=== PATIENT | female | born 1970 | race Caucasian/White ===

== ENCOUNTER → 2019-01-07 15:22 | Outpatient (CLI) | payer OTHER, SELFPAY | DX: Z23 Encounter for immunization (principal) | CPT/HCPCS: 90471; 90686 ==

== ENCOUNTER → 2019-08-21 16:19 | Outpatient (CLI) | payer OTHER, SELFPAY ==
[2019-08-28 06:36] LABS: COVID19 Sendout Not Detected (Not Detected)
== END ==
PROVIDERS: Visit Provider Physician Assistant
DX: J02.9 Acute pharyngitis, unspecified (principal)
CPT/HCPCS: 87070; 87635

== ENCOUNTER → 2020-03-28 14:35 | Outpatient (CLI) | payer OTHER, SELFPAY ==
[2020-03-28 15:17] LABS: COVID19 -Nasal RAPID Negative (Negative)
== END ==
PROVIDERS: Visit Provider Physician Assistant
DX: Z20.828 Contact with and (suspected) exposure to other viral communicable diseases (principal); J02.9 Acute pharyngitis, unspecified
CPT/HCPCS: 87635

== ENCOUNTER → 2020-06-25 16:01 | Outpatient (CLI) | payer OTHER, SELFPAY ==
--- NOTE | 2020-06-25 16:05 | DI.MG.S_ITS ---
BILATERAL DIGITAL SCREENING MAMMOGRAM 3D/2D WITH CAD: 06/25/2020 CLINICAL: Routine screening. Baseline exam. No prior exams were available for comparison. There are scattered fibroglandular elements in both breasts. Current study was also evaluated with a Computer Aided Detection (CAD) system. There are new grouped fine calcifications in the right breast at 11 o'clock middle depth. No other significant masses, calcifications, or other findings are seen in either breast. IMPRESSION: INCOMPLETE: NEEDS ADDITIONAL IMAGING EVALUATION The new grouped fine calcifications in the right breast are indeterminate. Mediolateral and spot magnification views are recommended. This exam was interpreted at Station ID: [id number]. NOTE: For mammograms, a report in lay terms will be sent to the patient. Approximately 15% of breast malignancies will not be visualized mammographically. In the management of a palpable breast mass, a negative mammogram must not discourage biopsy of a clinically suspicious lesion. Electronically Signed By: Zi Dai acr/:06/25/2020 17:14:27 letter sent: Additional Imaging Needed ACR BI-RADS Category 0: Incomplete 3340F
== END ==
PROVIDERS: PCP Family Medicine; Referring Provider Family Medicine; Visit Provider Family Medicine
DX: Z12.31 Encounter for screening mammogram for malignant neoplasm of breast (principal)
CPT/HCPCS: 77063; 77067

== ENCOUNTER → 2020-07-08 12:38 | Outpatient (CLI) | payer OTHER, SELFPAY ==
--- NOTE | 2020-07-08 12:41 | DI.MG.S_ITS ---
UNILATERAL RIGHT DIGITAL DIAGNOSTIC MAMMOGRAM 3D/2D WITH ADDITIONAL VIEWS: 07/08/2020 CLINICAL: Additional evaluation requested from prior study. Comparison is made to exam dated: 06/25/2020 [facility]. The tissue of right breast is heterogeneously dense. This may lower the sensitivity of mammography. There are grouped fine calcifications in the right breast at 11 o'clock middle depth. No other significant masses or calcifications are seen in the breast. IMPRESSION: PROBABLY BENIGN The grouped fine calcifications in the right breast are probably benign. A follow-up mammogram in 6 months is recommended. A follow-up mammogram in 6 months is recommended to demonstrate stability. This exam was interpreted at Station ID: [id number]. NOTE: For mammograms, a report in lay terms will be sent to the patient. Approximately 15% of breast malignancies will not be visualized mammographically. In the management of a palpable breast mass, a negative mammogram must not discourage biopsy of a clinically suspicious lesion. Electronically Signed By: Bakari fernandez/:07/08/2020 13:09:23 letter sent: Followup Recommended ACR BI-RADS Category 3: Probably benign 3343F
== END ==
PROVIDERS: PCP Family Medicine; Referring Provider Family Medicine; Visit Provider Family Medicine
DX: R92.1 Mammographic calcification found on diagnostic imaging of breast
CPT/HCPCS: 77065; G0279

== ENCOUNTER → 2020-08-05 15:47 | Outpatient (CLI) | payer OTHER, SELFPAY ==
[2020-08-05 16:11] LABS: COVID19 -Nasal RAPID Negative (Negative)
== END ==
PROVIDERS: PCP Family Medicine; Visit Provider Surgery
DX: Z20.822 Contact with and (suspected) exposure to COVID-19 (principal)
CPT/HCPCS: 87635; C9803

== ENCOUNTER 2020-08-06 08:02 | Day surgery (SDC) | payer OTHER, SELFPAY ==
[2020-08-06 08:14] VITALS: BMI 24.3
[2020-08-06 08:21] VITALS: BP 109/75; PULSE 64; RESP 13; TEMP 36.6; O2SAT 98
[2020-08-06] MEDS: SODIUM CHLORIDE 0.9% 1,000 ML 200 ML IV (08:25)
--- NOTE | 2020-08-06 08:57 | PM.HP.1 ---
History of Present Illness History of Present Illness Date Patient Seen: 08/06/20 Time Patient Seen: 08:57 Chief complaint: SCREENING COLONOSCOPY Narrative: This is a 50-year-old woman who is here for for screening colonoscopy. She had a colonoscopy many years ago when she was going through an evaluation for endometriosis. She reports that that 1 was normal. She denies any symptoms such as melena, hematochezia, unexplained abdominal pain, unexplained weight loss. She denies any family history of colon cancer colon polyps. She says she is otherwise in good health. ROS: Thirteen system review is otherwise negative other than as mentioned below and in HPI. PE: GENERAL: Well groomed and cooperative. Appears stated age. Answers questions promptly and appropriately. Vital signs noted. HENT: Normocephalic, atraumatic. Hearing intact. EYES: Conjunctiva pink, sclera white, no periorbital swelling. CARDIOVASCULAR: Regular rate. No pedal edema. RESPIRATORY: Non-tachypneic, breathing comfortably on room air. GASTROINTESTINAL: Abdomen soft and non-distended GENITALURINARY: No flank tenderness. MUSCULOSKELETAL: Equal tone and mass bilaterally. SKIN: Warm, dry, soft, appropriate color for ethnicity. No other lesions, rashes, or wounds. NEURO: Alert and Oriented X 3. No gross sensory deficits, or cognitive issues. PSYCH: Appropriate affect and mood. Patient History Medical History Breast calcification, right Circadian rhythm sleep disorder, shift work type (~2010) Colon cancer screening Encounter for general adult medical examination with abnormal findings Insomnia, persistent (~2010) Surgical History Status post delivery Status post delivery Status post hysterectomy with oophorectomy Status post laparoscopy Family & Social History Family History Sister Age: 49 Schizophrenia Social History: household members spouse lives independently Yes caregiver/support person No Tobacco & Substance use: Smoking Status Never smoker alcohol intake never Substance Use Type does not use Meds Home Medications and Allergies Home Medications Medication Instructions Recorded Confirmed Type CHOLECALCIFEROL (VITAMIN D) 2,000 units PO QDAY #0 09/27/12 08/06/20 History ibuprofen 600 mg PO Q6HP #0 09/27/12 08/06/20 History temazepam 15 mg capsule 15 mg PO BEDTIME PRN #30 cap 04/21/20 08/06/20 Rx Allergies Allergy/AdvReac Type Severity Reaction Status Date / Time No Known Allergies Allergy Uncoded 06/11/20 14:55 Exam Vital Signs (past 8 hours): - 08/06/20 08:21 Temperature 97.9 F Pulse Rate 64 Respiratory Rate 13 Blood Pressure 109/75 Pulse Oximetry 98 Oxygen Delivery Method Room Air Assessment & Plan Assessment and plan (1) At average risk for colon cancer: Status: Acute Assessment & Plan narrative: Risks and benefits of screening colonoscopy and possible polypectomy were discussed with the patient including risk of bleeding, perforation, need for additional procedures, risks of anesthesia. The patient desires to proceed with the colonoscopy procedure. COVID-19 COVID-19 status: Negative Result date/Date tested (Pos, Neg/Pending): 08/05/20 Time Spent With Patient Time with patient: 15-24 minutes Quality VTE Deep Vein Thrombosis/Pulmonary Embolism Present on Admission: No
--- NOTE | 2020-08-06 08:58 | PM.OP.ENDO ---
Operative Date/Time/Diagnoses Date of procedure: 08/06/20 Time of procedure: 08:58 Pre-op diagnosis: Average risk for colon cancer, due for screening colonoscopy Post-op diagnosis: other (Normal colon) Procedure & Clinicians Study performed: Colonoscopy Procedural sedation performed by the endoscopist Same procedure as scheduled: Yes Indications: Average risk for colon cancer, due for screening colonoscopy Surgeon: Alexandrea Combs Procedure Notes SCOAP/Timeout: Performed Procedure in detail: The patient was brought to the room and placed in left lateral decubitus position with all bony prominences padded. A time-out was performed and then the patient was given procedural sedation with a total of 6 mg of Versed and 150 mcg of fentanyl for the entire procedure. Vitals were monitored throughout the procedure and remained stable. Once adequately sedated, the procedure was begun. A rectal exam was performed revealing no abnormalities. The colonoscope was then introduced to the rectum and advanced to the cecum in the usual fashion. The cecum was identified by the appendiceal orifice, the mucosal tri-fold, and the ileocecal valve. The scope was then retracted while rotating side to side and examining each mucosal fold. At the conclusion of the procedure retroflexion was performed and small grade 1-2 internal hemorrhoids without stigmata of bleeding were seen. The scope was then withdrawn from the rectum the procedure was concluded. The patient tolerated the procedure well and was transferred to the PACU in stable condition. Scope withdrawal time: 8 Sedation minutes: 21 Specimen(s): none sent Complications: none Impression: Normal colon Post-procedure Recommendations: Colonscopy in 10 years Follow up: as needed Disposition: PACU
[2020-08-06] MEDS: MIDAZOLAM 5 MG/5 ML VIAL IV (09:03)
[2020-08-06] MEDS: fentaNYL 250 MCG/5 ML INJ IV (09:03)
[2020-08-06 09:30] VITALS: BP 111/68; PULSE 54; RESP 12; TEMP 36.3; O2SAT 100
[2020-08-06 09:35] VITALS: BP 116/71; PULSE 50; RESP 14; O2SAT 100
[2020-08-06 09:40] VITALS: BP 114/77; PULSE 49; RESP 16; O2SAT 100
[2020-08-06 09:45] VITALS: BP 114/69; PULSE 48; RESP 18; O2SAT 100
[2020-08-06 10:00] VITALS: BP 119/71; PULSE 57; RESP 14; TEMP 36.3; O2SAT 100
== END 2020-08-06 10:04 | disposition home or self-care (01) ==
PROVIDERS: PCP Family Medicine; Referring Provider Family Medicine; Visit Provider Surgery
PROC: 0DJD8ZZ Inspection of Lower Intestinal Tract, Via Natural or Artificial Opening Endoscopic (ICD-10-PCS; CPT 45378; principal; 2020-08-06 09:15)
DX: Z12.11 Encounter for screening for malignant neoplasm of colon (principal); K64.0 First degree hemorrhoids
CPT/HCPCS: 45378; 99152; J2250; J3010

== ENCOUNTER → 2021-04-06 12:43 | Outpatient (CLI) | payer OTHER, SELFPAY ==
--- NOTE | 2021-04-06 12:45 | DI.MG.S_ITS ---
UNILATERAL RIGHT DIGITAL DIAGNOSTIC MAMMOGRAM 3D/2D: 04/06/2021 CLINICAL: Short term follow up of the right breast. Comparison is made to exams dated: 07/08/2020 mammogram and 06/25/2020 mammogram - [facility]. The tissue of right breast is heterogeneously dense. This may lower the sensitivity of mammography. There are stable grouped fine calcifications in the right breast at 11 o'clock middle depth. No other significant masses or calcifications are seen in the breast. Mammograms are otherwise stable. IMPRESSION: PROBABLY BENIGN The stable grouped fine calcifications in the right breast are probably benign. A follow-up mammogram with magnification views in 6 months is recommended to demonstrate continued stability. The patient will be due for bilateral mammograms at that same visit. Findings and recommendations were conveyed to the patient at time of exam. This exam was interpreted at Station ID: [id number]. NOTE: For mammograms, a report in lay terms will be sent to the patient. Approximately 15% of breast malignancies will not be visualized mammographically. In the management of a palpable breast mass, a negative mammogram must not discourage biopsy of a clinically suspicious lesion. Electronically Signed By: Marissa acosta/:04/06/2021 13:30:02 letter sent: Followup Recommended ACR BI-RADS Category 3: Probably benign 3343F
== END ==
PROVIDERS: PCP Family Medicine; Referring Provider Family Medicine; Visit Provider Family Medicine
DX: R92.1 Mammographic calcification found on diagnostic imaging of breast (principal)
CPT/HCPCS: 77065; G0279

== ENCOUNTER → 2021-05-13 10:27 | Outpatient (CLI) | payer OTHER, SELFPAY ==
[2021-05-13 12:13] LABS: Alanine Aminotransferase 15 IU/L (<35); Albumin 4.8 g/dL (3.5-5.0); Albumin Globulin Ratio 1.7 (1.0-2.8); Alkaline Phosphatase 70 U/L (38-126); Aspartate Aminotransferase 30 IU/L (14-36); BUN Creatinine Ratio 22.2 (6-22); Bilirubin Total 0.9 mg/dL (0.2-1.3); Blood Urea Nitrogen 18 mg/dL (7-17); Calcium 9.9 mg/dL (8.4-10.2); Carbon Dioxide 26 mmol/L (22-32); Chloride 105 mmol/L (98-107); Cholesterol 240 mg/dL (140-199); Estimated Glomerular Filt Rate > 60.0 mL/min (>60); Globulin 2.8 g/dL (1.7-4.1); Glucose 108 mg/dL (70-100); HEMOLYSIS < 15 (0-50); Potassium 4.2 mmol/L (3.4-5.1); Sodium 137 mmol/L (137-145); Total Protein 7.6 g/dL (6.3-8.2); Triglycerides 61 mg/dL (35-150)
[2021-05-13 12:22] LABS: HDL Cholesterol 166 mg/dL (40-60); LDL Cholesterol Calculated 62 mg/dL (<100)
[2021-05-13 12:59] LABS: TSH w/ Reflex to FT4 1.47 uIU/mL (0.47-4.68)
[2021-05-13 13:15] LABS: Influenza A - CEPHEID Flu A NEGATIVE (NEGATIVE); Influenza B - CEPHEID Flu B NEGATIVE (NEGATIVE); Respiratory Syncytial Virus Negative (Negative)
[2021-05-13 13:17] LABS: COVID-19 CEPHEID PCR (VTM/NP) Negative (Negative)
[2021-05-13 16:43] LABS: Follicle Stimulating Hormone 59.5 mIU/mL; Vitamin D 25 Hydroxy (D3) 67.8 ng/mL (30.0-100.0)
== END ==
PROVIDERS: PCP Family Medicine; Referring Provider Family Medicine; Visit Provider Family Medicine
DX: Z20.822 Contact with and (suspected) exposure to COVID-19 (principal); G47.00 Insomnia, unspecified; G47.26 Circadian rhythm sleep disorder, shift work type; Z00.01 Encounter for general adult medical examination with abnormal findings; N95.1 Menopausal and female climacteric states
CPT/HCPCS: 0241U; 36415; 80053; 80061; 82306; 83001; 83036; 84443

== ENCOUNTER → 2022-06-01 11:03 | Outpatient (CLI) | payer OTHER, SELFPAY ==
--- NOTE | 2022-06-01 11:06 | DI.MG.S_ITS ---
BILATERAL DIGITAL DIAGNOSTIC MAMMOGRAM 3D/2D: 06/01/2022 CLINICAL: Short term follow up of the right breast, due for bilateral imaging. Comparison is made to exams dated: 04/06/2021 mammogram, 07/08/2020 mammogram, and 06/25/2020 mammogram - [facility]. Both breasts are heterogeneously dense, which may obscure small masses (category c / 51-75% glandular tissue). There are stable grouped fine punctate calcifications in the right breast at 11 o'clock middle depth. No other significant masses, calcifications, or other findings are seen in either breast. IMPRESSION: BENIGN There is no mammographic evidence of malignancy. Grouped fine and punctate calcifications in the right breast at 11 o'clock middle depth demonstrate long-term stability and are benign. A 1 year screening mammogram is recommended. Based on the Tyrer Cuzick model (a risk assessment model) the patient's lifetime risk is 7.1% and her 10 year risk is 1.8%. According to the ACR, ACS, and NCCN guidelines, an annual breast MRI exam along with mammogram is recommended if the patient's lifetime risk is 20% or greater. This exam was interpreted at Station ID: [id number]. NOTE: For mammograms, a report in lay terms will be sent to the patient. Approximately 15% of breast malignancies will not be visualized mammographically. In the management of a palpable breast mass, a negative mammogram must not discourage biopsy of a clinically suspicious lesion. Electronically Signed By: Jimmy Paulino M.D. [facility]/:06/01/2022 12:43:42 letter sent: Normal Exam ACR BI-RADS Category 2: Benign Finding(s) 3342F
[2022-06-01 12:20] LABS: Add Manual Diff / Slide Review NO; Basophils Absolute Auto 100 /uL (0-100); Basophils Percent Auto 0.7 % (0-2); Eosinophils Absolute Auto 100 /uL (0-450); Eosinophils Percent Auto 0.9 % (2-4); Hematocrit 39.5 % (36-46); Hemoglobin 13.5 g/dL (12.0-16.0); Lymphocytes Absolute Auto 1700 /uL (1100-4500); Mean Corpuscular HGB Conc 34.2 % (30-36); Mean Corpuscular Hemoglobin 31.8 PG (26-34); Mean Corpuscular Volume 92.9 fL (80-100); Monocytes Absolute Auto 400 /uL (0-900); Monocytes Percent Auto 5.7 % (3-14); Neutrophils Absolute Auto 5000 /uL (1500-7000); Neutrophils Percent Auto 69.7 % (50-75); Platelet Count 280 X10^3/uL (150-400); Red Blood Cell Count 4.26 X10^6/uL (4.0-5.2); Red Cell Distribution Width 12.9 % (11.6-14.8); White Blood Cell Count 7.2 X10^3/uL (4.5-11.0)
[2022-06-01 13:04] LABS: Alanine Aminotransferase 17 IU/L (<35); Albumin 4.6 g/dL (3.5-5.0); Albumin Globulin Ratio 1.6 (1.0-2.8); Alkaline Phosphatase 103 U/L (38-126); Aspartate Aminotransferase 25 IU/L (14-36); BUN Creatinine Ratio 33.3 (6-22); Bilirubin Total 1.3 mg/dL (0.2-1.3); Blood Urea Nitrogen 24 mg/dL (7-17); Calcium 9.4 mg/dL (8.4-10.2); Carbon Dioxide 21 mmol/L (22-32); Chloride 105 mmol/L (98-107); Estimated Glomerular Filt Rate > 60 mL/min (>60); Globulin 2.8 g/dL (1.7-4.1); Glucose 96 mg/dL (70-100); HEMOLYSIS < 15 (0-50); Sodium 138 mmol/L (137-145); Total Protein 7.4 g/dL (6.3-8.2)
[2022-06-01 13:32] LABS: TSH w/ Reflex to FT4 2.33 uIU/mL (0.47-4.68)
== END ==
PROVIDERS: PCP Family Medicine; Referring Provider Family Medicine; Visit Provider Family Medicine
DX: R92.1 Mammographic calcification found on diagnostic imaging of breast (principal); E78.89 Other lipoprotein metabolism disorders; F90.0 Attention-deficit hyperactivity disorder, predominantly inattentive type; G47.00 Insomnia, unspecified
CPT/HCPCS: 36415; 77066; 80053; 84443; 85025; G0279

== ENCOUNTER → 2022-07-06 09:11 | Outpatient (CLI) | payer OTHER, SELFPAY ==
[2022-07-06 10:31] LABS: Cholesterol 241 mg/dL (140-199); Triglycerides 54 mg/dL (35-150)
[2022-07-06 10:38] LABS: HDL Cholesterol 159 mg/dL (40-60); LDL Cholesterol Calculated 71 mg/dL (<100)
== END ==
PROVIDERS: PCP Family Medicine; Referring Provider Family Medicine; Visit Provider Family Medicine
DX: E78.89 Other lipoprotein metabolism disorders (principal); F90.0 Attention-deficit hyperactivity disorder, predominantly inattentive type; G47.00 Insomnia, unspecified
CPT/HCPCS: 36415; 80061

== ENCOUNTER 2022-11-21 12:16 | Emergency (ER) | payer OTHER, SELFPAY ==
[2022-11-21 12:35] VITALS: BP 153/75; PULSE 79; RESP 16; TEMP 36.9; O2SAT 99; BMI 22.8
[2022-11-21] MEDS: ACETAMINOPHEN 325 MG TABLET 975 MG PO (13:13)
[2022-11-21] MEDS: ONDANSETRON 4 MG ODT SL (13:13)
[2022-11-21] MEDS: KETOROLAC 30 MG/ML VIAL IM (13:14)
--- NOTE | 2022-11-21 13:39 | ED.HEATRA ---
HPI - Head Injury <Priya Alexandra PA-C - Last Filed: 11/21/22 14:05> General Chief complaint: Head Injury Stated complaint: Head inj Time Seen by Provider: 11/21/22 12:54 Source: patient Mode of arrival: Ambulatory History of Present Illness HPI Narrative: 52-year-old female with past medical history ADHD, insomnia presents to the ED status post a head injury sustained 6 days prior to arrival. Patient states that she was accidentally hit on the head with a log from the water when her kids were playing. Patient denies loss of consciousness. Patient states that since then she is had a headache and feels a small bump on her head with a log hit her. Patient also endorses nausea, denies vomiting. Denies vision changes. Patient states that she does not taken anything for the pain. Patient states she spoke with her PCP who sent her to the walk-in clinic, walk-in clinic sent her to the ED for further evaluation. Related Data Home Medications Medication Instructions Recorded Confirmed CHOLECALCIFEROL (VITAMIN D) 2,000 units PO QDAY ##0 09/27/12 09/13/22 ibuprofen 600 mg tablet 600 mg PO Q6HP ##0 09/27/12 09/13/22 Previous Rx's Medication Instructions Recorded temazepam 15 mg capsule 15 mg PO BEDTIME PRN sleep 04/26/22 initiation and maintenence #30 caps dextroamphetamine-amphetamine 10 10 mg PO DAILY #30 tabs 11/15/22 mg tablet (Adderall) Allergies Allergy/AdvReac Type Severity Reaction Status Date / Time No Known Drug Allergies Allergy Verified 11/21/22 12:44 Review of Systems <Priya Alexandra PA-C - Last Filed: 11/21/22 14:05> Review of Systems ROS Unobtainable: All systems reviewed & are unremarkable except as noted in HPI and below Constitutional Constitutional: Denies chills, Denies fatigue, Denies fever(s), Denies frequent falls, Reports headache(s), Denies lethargy and Denies weakness Eyes Eyes: Denies change in vision, Denies eye discharge, Denies irritation and Denies loss of vision ENT Ears, Nose, Mouth, and Throat: Denies change in voice, Denies dizziness, Reports headache(s), Denies neck pain, Denies sore throat and Denies throat swelling Cardiovascular Cardiovascular: Denies chest pain, Denies irregular heart rhythm, Denies lightheadedness, Denies palpitations, Denies dyspnea, Denies dyspnea on exertion and Denies orthopnea Respiratory Respiratory: Denies cough, Denies dyspnea, Denies dyspnea on exertion and Denies wheezing Gastrointestinal Gastrointestinal: Denies abdominal pain, Denies change in bowel habits, Denies diarrhea, Reports nausea and Denies vomiting Genitourinary Genitourinary: Denies hematuria, Denies flank pain, Denies urinary incontinence and Denies urinary urgency Musculoskeletal Musculoskeletal: Denies back pain, Denies muscle weakness, Denies neck pain, Denies numbness and Denies tingling Integumentary/Breasts Skin/Breast: Denies pruritus, Denies erythema, Denies rash and Denies wounds Neurologic Neurologic: Denies behavioral changes, Denies confusion, Denies dizziness, Denies frequent falls, Reports headache(s), Denies loss of vision, Denies numbness, Denies tingling and Denies weakness Psychiatric Psychiatric: Denies anxiety, Denies behavioral changes, Denies confusion, Denies depression, Denies homicidal ideation and Denies suicidal ideation Endocrine Endocrine: Denies fatigue, Denies flushing and Denies palpitations Hematologic/Lymphatic Hematologic/Lymphatic: Denies easy bruising Allergic/Immunologic Allergic/Immunologic: Denies urticaria, Denies throat swelling and Denies wheezing Patient History <Priya Alexandra PA-C - Last Filed: 11/21/22 14:05> Medical History ADHD Breast calcification, right Circadian rhythm sleep disorder, shift work type (~2010) Colon cancer screening Encounter for general adult medical examination with abnormal findings Insomnia, persistent (~2010) Perimenopause Surgical History Status post delivery Status post delivery Status post hysterectomy with oophorectomy Status post laparoscopy Family History Sister Age: 51 Schizophrenia Social History marital status: details: to Youssarian household members: spouse lives independently: Yes caregiver/support person: No housing: house education level: college occupational status: employed current occupational exposures/hazards: Yes (hospital-based RN w/usual exposures ) Smoking Status: Never smoker alcohol intake: never Smoking Status: Never smoker Substance Use Type: does not use Exam <Priya Alexandra PA-C - Last Filed: 11/21/22 14:05> Narrative Exam Narrative: Const General:?cooperative, healthy appearing and comfortable HENMT Head:?normal to inspection; there is a small bump on the left parietal region. No skull depressions, no hematoma. Ears:?hearing grossly normal bilaterally Nose:?external nose normal Face and sinus:?normal facial exam and sinuses nontender Mouth:?oral mucosae normal Throat:?posterior oropharynx normal Eyes General:?appearance normal, both eyes and all related structures Neck Neck:?normal visual inspection and no lymphadenopathy noted Resp Effort & Inspection:?normal respiratory effort Auscultation:?clear to auscultation bilaterally Cardio Rate:?regular rate Rhythm:?regular rhythm Neuro General:?patient alert, patient awake and patient oriented x3 Initial Vital Signs Initial Vital Signs: Vital Signs Temperature 98.4 F 11/21/22 12:35 Pulse Rate 79 11/21/22 12:35 Respiratory Rate 16 11/21/22 12:35 Blood Pressure 153/75 H 11/21/22 12:35 Pulse Oximetry 99 11/21/22 12:35 Oxygen Delivery Method Room Air 11/21/22 12:35 <Sara Mcgowan DO - Last Filed: 11/22/22 08:16> Initial Vital Signs Initial Vital Signs: Vital Signs Temperature 98.4 F 11/21/22 12:35 Pulse Rate 79 11/21/22 12:35 Respiratory Rate 16 11/21/22 12:35 Blood Pressure 153/75 H 11/21/22 12:35 Pulse Oximetry 99 11/21/22 12:35 Oxygen Delivery Method Room Air 11/21/22 12:35 Course <Priya Alexandra PA-C - Last Filed: 11/21/22 14:05> Orders Ordered: Discontinued Medications Acetaminophen (Acetaminophen 325 Mg Tablet) 975 mg PO NOW ONE Stop: 11/21/22 13:00 Last Admin: 11/21/22 13:13 Dose: 975 mg Documented By: TORI Ketorolac Tromethamine (Ketorolac 30 Mg/Ml Vial) 30 mg IM NOW ONE Stop: 11/21/22 13:03 Last Admin: 11/21/22 13:14 Dose: 30 mg Documented By: TORI Ondansetron HCl (Ondansetron 4 Mg Odt) 4 mg SL NOW ONE Stop: 11/21/22 13:03 Last Admin: 11/21/22 13:13 Dose: 4 mg Documented By: TORI Vital Signs Vital signs: Vital Signs - 8 hr 11/21/22 12:35 Temperature 98.4 F Pulse Rate 79 Respiratory Rate 16 Blood Pressure 153/75 H Pulse Oximetry 99 Oxygen Delivery Method Room Air <Sara Mcgowan DO - Last Filed: 11/22/22 08:16> Orders Ordered: Discontinued Medications Acetaminophen (Acetaminophen 325 Mg Tablet) 975 mg PO NOW ONE Stop: 11/21/22 13:00 Last Admin: 11/21/22 13:13 Dose: 975 mg Documented By: TORI Ketorolac Tromethamine (Ketorolac 30 Mg/Ml Vial) 30 mg IM NOW ONE Stop: 11/21/22 13:03 Last Admin: 11/21/22 13:14 Dose: 30 mg Documented By: TORI Ondansetron HCl (Ondansetron 4 Mg Odt) 4 mg SL NOW ONE Stop: 11/21/22 13:03 Last Admin: 11/21/22 13:13 Dose: 4 mg Documented By: TORI Vital Signs Vital signs: Vital Signs - 8 hr 11/21/22 12:35 Temperature 98.4 F Pulse Rate 79 Respiratory Rate 16 Blood Pressure 153/75 H Pulse Oximetry 99 Oxygen Delivery Method Room Air MDM - Head Injury <Priya Alexandra PA-C - Last Filed: 11/21/22 14:05> MDM Narrative Medical decision making narrative: 52-year-old female with past medical history ADHD, insomnia presents to the ED status post a head injury sustained 6 days prior to arrival. Physical exam is reassuring, no skull depressions or hematoma noted. Patient's symptoms are most consistent with a concussion. Given that the injury was 6 days ago, unlikely intracranial hemorrhage, no imaging indicated at this time. Will treat with Tylenol, ketorolac, Zofran. Will reassess. Patient's symptoms resolved with medications. Discussed common signs and symptoms of a concussion. Recommend follow-up with the PCP. ED return precautions discussed with patient. Patient verbalized understanding. Medical records reviewed: Yes Discharge Plan Departure Patient Disposition: Home Clinical Impression: Closed head injury Instructions: Concussion, DI for Closed Head Injury Activity Restrictions/Additional Instructions: You were evaluated in the ED today for a head injury. Your symptoms of headache and nausea are most consistent with a concussion, which is a minor brain injury. You may also experience symptoms including sleepiness, fatigue, depression, agitation, vomiting in addition to nausea, headache. You may take Tylenol, ibuprofen for your symptoms. Please stay well hydrated. Please follow-up with your PCP for further evaluation and monitoring of postconcussive syndrome. Please return to the ED if you have worsening symptoms, persistent vomiting. Prescriptions: No Action ibuprofen 600 MG tablet 600 mg PO Q6HP Qty: 0 CHOLECALCIFEROL (VITAMIN D) 2,000 units PO QDAY Qty: 0 dextroamphetamine-amphetamine [Adderall] 10 mg tablet 10 mg PO DAILY Qty: 30 0RF temazepam 15 mg capsule 15 mg PO BEDTIME PRN (Reason: sleep initiation and maintenence) Qty: 30 3RF Referrals: David Gray MD [Primary Care Provider] - Stand Alone Forms: Patient Portal/API, Work Release Note <Sara Mcgowan DO - Last Filed: 11/22/22 08:16> Cosign ED Attending Cosignature Attestation: I was immediately available in the department for consultation. Documentation has been reviewed.
[2022-11-21 14:13] VITALS: BP 132/72; PULSE 60; RESP 16; O2SAT 99
== END 2022-11-21 14:15 | disposition home or self-care (01) ==
PROVIDERS: Emergency Provider Student in an Organized Health Care Education/Training Program; PCP Family Medicine
DX: S09.90XA Unspecified injury of head, initial encounter (principal); W22.8XXA Striking against or struck by other objects, initial encounter
CPT/HCPCS: 96372; 99283; J1885

== ENCOUNTER → 2023-06-08 12:47 | Outpatient (CLI) | payer OTHER, SELFPAY ==
--- NOTE | 2023-06-08 12:49 | DI.MG.S_ITS ---
BILATERAL DIGITAL SCREENING MAMMOGRAM 3D/2D WITH CAD: 06/08/2023 CLINICAL: Routine screening. Comparison is made to exams dated: 06/01/2022 mammogram and 06/25/2020 mammogram - [facility]. Both breasts are heterogeneously dense, which may obscure small masses (category c / 51-75% glandular tissue). Current study was also evaluated with a Computer Aided Detection (CAD) system. No significant masses, calcifications, or other findings are seen in either breast. There has been no significant interval change. IMPRESSION: NEGATIVE There is no mammographic evidence of malignancy. A 1 year screening mammogram is recommended. Based on the Tyrer Cuzick model (a risk assessment model) the patient's lifetime risk is 7.0% and her 10 year risk is 1.9%. According to the ACR, ACS, and NCCN guidelines, an annual breast MRI exam along with mammogram is recommended if the patient's lifetime risk is 20% or greater. This exam was interpreted at Station ID: [id number]. NOTE: For mammograms, a report in lay terms will be sent to the patient. Approximately 15% of breast malignancies will not be visualized mammographically. In the management of a palpable breast mass, a negative mammogram must not discourage biopsy of a clinically suspicious lesion. Electronically Signed By: Reyes vides/angie:06/08/2023 16:37:29 letter sent: Normal Exam ACR BI-RADS Category 1: Negative 3341F
== END ==
PROVIDERS: PCP Family Medicine; Referring Provider Family Medicine; Visit Provider Family Medicine
DX: Z12.31 Encounter for screening mammogram for malignant neoplasm of breast (principal); R92.333 Mammographic heterogeneous density, bilateral breasts
CPT/HCPCS: 77063; 77067

== ENCOUNTER → 2024-07-15 09:42 | Outpatient (CLI) | payer OTHER, SELFPAY ==
[2024-07-15 10:45] LABS: Add Manual Diff / Slide Review NO; Basophils Absolute Auto 100 /uL (0-100); Basophils Percent Auto 1.1 % (0-2); Eosinophils Absolute Auto 100 /uL (0-450); Hematocrit 37.3 % (36-46); Hemoglobin 12.7 g/dL (12.0-16.0); Lymphocytes Absolute Auto 1900 /uL (1100-4500); Lymphocytes Percent Auto 36.3 % (25-40); Mean Corpuscular HGB Conc 34.1 % (30-36); Mean Corpuscular Hemoglobin 31.7 PG (26-34); Mean Corpuscular Volume 92.8 fL (80-100); Monocytes Absolute Auto 400 /uL (0-900); Monocytes Percent Auto 7.9 % (3-14); Neutrophils Absolute Auto 2800 /uL (1500-7000); Neutrophils Percent Auto 52.7 % (50-75); Platelet Count 316 X10^3/uL (150-400); Red Blood Cell Count 4.02 X10^6/uL (4.0-5.2); Red Cell Distribution Width 12.8 % (11.6-14.8); White Blood Cell Count 5.3 X10^3/uL (4.5-11.0)
[2024-07-15 11:46] LABS: Alanine Aminotransferase 16 IU/L (<35); Albumin 4.8 g/dL (3.5-5.0); Albumin Globulin Ratio 1.9 (1.0-2.8); Alkaline Phosphatase 66 U/L (38-126); Aspartate Aminotransferase 27 IU/L (14-36); BUN Creatinine Ratio 28.2 (6-22); Bilirubin Total 1.3 mg/dL (0.2-1.3); Blood Urea Nitrogen 24 mg/dL (7-17); Calcium 9.8 mg/dL (8.4-10.2); Carbon Dioxide 22 mmol/L (22-32); Chloride 105 mmol/L (98-107); Cholesterol 264 mg/dL (140-199); Estimated Glomerular Filt Rate > 60 mL/min (>60); Globulin 2.5 g/dL (1.7-4.1); Glucose 82 mg/dL (70-100); HEMOLYSIS < 15 (0-50); Sodium 137 mmol/L (137-145); Total Protein 7.3 g/dL (6.3-8.2); Triglycerides 59 mg/dL (35-150)
[2024-07-15 11:54] LABS: HDL Cholesterol 125 mg/dL (40-60); LDL Cholesterol Calculated 127 mg/dL (<100)
[2024-07-15 12:17] LABS: TSH w/ Reflex to FT4 3.14 uIU/mL (0.47-4.68)
== END ==
PROVIDERS: PCP Family Medicine; Referring Provider Family Medicine; Visit Provider Family Medicine
DX: F90.9 Attention-deficit hyperactivity disorder, unspecified type (principal); G47.26 Circadian rhythm sleep disorder, shift work type; Z78.0 Asymptomatic menopausal state
CPT/HCPCS: 36415; 80053; 80061; 84443; 85025

== ENCOUNTER 2025-03-13 13:53 | Emergency (ER) | payer OTHER, SELFPAY ==
[2025-03-13] VITALS (8 sets, daily range): BP systolic 119–160; BP diastolic 77–97; PULSE 64–97; RESP 16–18; TEMP 36.3–36.8; O2SAT 96–100; BMI 23.6
--- NOTE | 2025-03-13 14:11 | DI.US.S_ITS ---
PROCEDURE: US RENAL COMPLETE INDICATIONS: R flank pain TECHNIQUE: Real-time scanning was performed of the kidneys and bladder, with image documentation. COMPARISON: None. FINDINGS: Kidneys: Kidneys are normal in size. Right kidney measures 9.4 cm long; left kidney measures 10.1 cm long. Right renal cortical thickness is 1.0 cm; left renal cortical thickness is 1.4 cm. Renal cortical echotexture is normal. Mild right hydronephrosis. No obstructing calculus is seen. No left hydronephrosis. Simple left renal cyst measures up to 2 cm. No suspicious solid mass lesions. Bladder: Pre-void bladder volume is 18 mL. Post-void residual is 0 mL. Pre- void images demonstrate no intraluminal masses or stones. On pre-void images, no ureteral jets are noted with color Doppler interrogation. (Of note, ureteral jets may not be detectable in up to 25% of cases due to insufficient differences in specific gravity between ureteral and bladder urine). Miscellaneous: No free pelvic fluid. IMPRESSION: Mild right hydronephrosis. No definite obstructing calculus is seen. CT KUB could be performed for further evaluation if indicated clinically. Approved by: Bruno Villareal M.D. on 03/13/2025 at 15:26
[2025-03-13] MEDS: KETOROLAC 30 MG/ML VIAL 15 MG IV (14:23)
[2025-03-13] MEDS: ONDANSETRON 4 MG/2 ML INJ IV (14:23)
[2025-03-13 14:54] LABS: Alanine Aminotransferase 15 IU/L (<35); Albumin 4.6 g/dL (3.5-5.0); Albumin Globulin Ratio 1.7 (1.0-2.8); Alkaline Phosphatase 72 U/L (38-126); Blood Urea Nitrogen 19 mg/dL (7-17); Calcium 9.3 mg/dL (8.4-10.2); Carbon Dioxide 18 mmol/L (22-32); Chloride 110 mmol/L (98-107); Estimated Glomerular Filt Rate > 60 mL/min (>60); Globulin 2.7 g/dL (1.7-4.1); Glucose 110 mg/dL (70-99); HEMOLYSIS < 15 (0-50); Potassium 3.8 mmol/L (3.4-5.1); Sodium 138 mmol/L (137-145); Total Protein 7.3 g/dL (6.3-8.2)
[2025-03-13 14:55] LABS: Add Manual Diff / Slide Review NO; Hematocrit 37.6 % (36-46); Hemoglobin 13.0 g/dL (12.0-16.0); Lymphocytes Absolute Auto 1200 /uL (1100-4500); Mean Corpuscular HGB Conc 34.6 % (30-36); Mean Corpuscular Hemoglobin 31.4 PG (26-34); Mean Corpuscular Volume 90.7 fL (80-100); Platelet Count 317 X10^3/uL (150-400)
[2025-03-13 16:01] LABS: Culture Indicated Urine Cult Not Indicated
--- NOTE | 2025-03-13 18:21 | ED.ABDPAIN ---
HPI - Abdominal Pain General Chief Complaint: Urogenital-Female Stated Complaint: Passing a Kidney stone Time Seen by Provider: 03/13/25 18:14 Source: patient Mode of arrival: Ambulatory History of Present Illness HPI narrative: 54-year-old female with history of kidney stones, none for a number of years, complains of right flank non herpetic pain earlier today. No nausea or vomiting. Took ibuprofen prior with some improvement in symptoms. Denies fevers or chills. Denies cough shortness of breath or chest pain. Denies painful or frequent urination. Not currently taking oral antibiotics. Related Data Home Medications ?Medication ?Instructions ?Recorded ?Confirmed CHOLECALCIFEROL (VITAMIN D) 2,000 units PO QDAY ##0 09/27/12 01/16/25 ibuprofen 600 mg tablet 600 mg PO Q6HP ##0 09/27/12 01/16/25 Previous Rx's ?Medication ?Instructions ?Recorded progesterone micronized 100 mg 100 mg PO QPM #90 caps 11/19/24 capsule dextroamphetamine-amphetamine 20 20 mg PO DAILY #30 tabs 25 mg tablet (Adderall) dextroamphetamine-amphetamine 20 20 mg PO DAILY #30 tabs 25 mg tablet (Adderall) dextroamphetamine-amphetamine 20 20 mg PO DAILY #30 tabs 1016/25 mg tablet (Adderall) temazepam 15 mg capsule 15 mg PO BEDTIME PRN sleep 01/16/25 initiation and maintenence #30 caps estradiol 0.075 mg/24 hr weekly 1 patch transdermal QWEEK #12 ea 02/24/25 transdermal patch tamsulosin 0.4 mg capsule 0.4 mg PO DAILY #14 caps 03/13/25 tamsulosin 0.4 mg capsule 0.4 mg PO DAILY #14 caps 03/13/25 Allergies Allergy/AdvReac Type Severity Reaction Status Date / Time No Known Drug Allergies Allergy Verified 03/13/25 13:57 Patient History Medical History (Updated 03/13/25 @ 19:42 by Jesús Alaniz MD) Sesamoiditis of foot ADHD Perimenopause Breast calcification, right Colon cancer screening Encounter for general adult medical examination with abnormal findings Circadian rhythm sleep disorder, shift work type (~2010) Insomnia, persistent (~2010) Surgical History Status post hysterectomy with oophorectomy Status post laparoscopy Status post delivery Status post delivery Family History Sister Age: 54 Schizophrenia Social History marital status: details: to [place] household members: spouse lives independently: Yes caregiver/support person: No housing: house education level: college occupational status: employed current occupational exposures/hazards: Yes (hospital-based RN w/usual exposures ) Smoking Status: Never smoker alcohol intake: never Smoking Status: Never smoker Exam Narrative Exam Narrative: GENERAL: Well-developed patient, in mild distress. HEAD: Atraumatic. Normocephalic. EYES: Pupils equal round and reactive. Extraocular motions intact. No scleral icterus. No injection or drainage. ENT: Nose without bleeding, purulent drainage. Throat without erythema, tonsillar hypertrophy or exudate. Airway patent. NECK: Trachea midline. Non tender CARDIOVASCULAR: Regular rate and rhythm without murmurs, gallops, or rubs. RESPIRATORY: Clear to auscultation. Breath sounds equal bilaterally. No wheezes, rales, or rhonchi. GASTROINTESTINAL: Abdomen soft, non-tender, nondistended. EXTREMITIES: No edema or joint tenderness. BACK: Nontender without deformity or crepitance. No flank tenderness. NEURO: AOx3. Motor functions grossly nonfocal. SKIN: No rash or erythema of visible areas Initial Vital Signs Initial Vital Signs: Vital Signs Temperature 97.4 F L 03/13/25 13:57 Pulse Rate 74 03/13/25 13:57 Respiratory Rate 18 03/13/25 13:57 Blood Pressure 160/88 H 03/13/25 13:57 Pulse Oximetry 100 03/13/25 13:57 Oxygen Delivery Method Room Air 03/13/25 13:57 Course Orders Ordered: Discontinued Medications Hydrocodone Bitart/Acetaminophen (Hydrocodone/Acet 5/325 Prepack) 1 bottle MISC DIRECTED ONE Stop: 03/13/25 19:39 Last Admin: 03/13/25 19:47 Dose: 1 bottle Documented By: JOLEEN Ketorolac Tromethamine (Ketorolac 30 Mg/Ml Vial) 15 mg IV NOW ONE Stop: 03/13/25 14:07 Last Admin: 03/13/25 14:23 Dose: 15 mg Documented By: EDILBERTO Ondansetron HCl (Ondansetron 4 Mg/2 Ml Inj) 4 mg IV NOW PRN PRN Reason: Nausea And Vomiting Last Admin: 03/13/25 14:23 Dose: 4 mg Documented By: EDILBERTO Ondansetron HCl (Ondansetron 4 Mg Odt) 4 mg PO NOW PRN PRN Reason: Nausea And Vomiting Ondansetron HCl (Ondansetron 4 Mg Odt Prepack) 1 bottle MISC DIRECTED ONE Stop: 03/13/25 19:39 Last Admin: 03/13/25 19:47 Dose: 1 bottle Documented By: JOLENE Ondansetron HCl (Ondansetron 4 Mg/2 Ml Inj) 4 mg IV NOW ONE Stop: 03/13/25 19:39 Last Admin: 03/13/25 19:55 Dose: Not Given Documented By: JOLENE Vital Signs Vital signs: Vital Signs - 8 hr 03/13/25 13:57 03/13/25 17:19 Temperature 97.4 F L 98.3 F Pulse Rate 74 64 Respiratory Rate 18 17 Blood Pressure 160/88 H 119/77 Pulse Oximetry 100 100 Oxygen Delivery Method Room Air Room Air Oxygen Flow Rate 0 MDM - Abdominal Pain Lab Data Attestation: I reviewed the patient's lab results. Lab results narrative: White blood cell count 5500, hemoglobin 13.0, platelets adequate. Glucose 110. Renal function, electrolytes unremarkable. Serum CO2 18 mild decreased. Urine dip negative. Urine shows some blood, no obvious inflammatory markers or bacteria. 03/13/25 14:21 03/13/25 14:21 Labs: Lab Results 03/13/25 03/13/25 Range/Units 14:21 14:57 WBC 5.5 (4.5-11.0) X10^3/uL RBC 4.14 (4.0-5.2) X10^6/uL Hgb 13.0 (12.0-16.0) g/dL Hct 37.6 (36-46) % MCV 90.7 (80-100) fL MCH 31.4 (26-34) PG MCHC 34.6 (30-36) % RDW 12.2 (11.6-14.8) % Plt Count 317 (150-400) X10^3/uL Neut % (Auto) 67.7 (50-75) % Lymph % (Auto) 22.9 L (25-40) % [place] % (Auto) 7.5 (3-14) % Eos % (Auto) 0.9 L (2-4) % Baso % (Auto) 1.0 (0-2) % Neut # (Auto) 3700 (2007-4975) /uL Lymph # (Auto) 1200 (8835-7954) /uL [place] # (Auto) 400 (0-900) /uL Eos # (Auto) 0 (0-450) /uL Baso # (Auto) 100 (0-100) /uL Sodium 138 (137-145) mmol/L Potassium 3.8 (3.4-5.1) mmol/L Chloride 110 H (98-107) mmol/L Carbon Dioxide 18 L (22-32) mmol/L BUN 19 H (7-17) mg/dL Creatinine 0.74 (0.52-1.04) mg/dL Estimated GFR > 60 (>60) mL/min BUN/Creatinine Ratio 25.7 H (6-22) Glucose 110 H (70-99) mg/dL Calcium 9.3 (8.4-10.2) mg/dL Total Bilirubin 1.4 H (0.2-1.3) mg/dL AST 30 (14-36) IU/L ALT 15 (<35) IU/L Alkaline Phosphatase 72 (38-126) U/L Total Protein 7.3 (6.3-8.2) g/dL Albumin 4.6 (3.5-5.0) g/dL Globulin 2.7 (1.7-4.1) g/dL Albumin/Globulin Ratio 1.7 (1.0-2.8) Urine RBC 10-30/hpf H (0-5/HPF) Urine WBC 0-1/hpf (0-5/HPF) Ur Squamous Epith Cells 1-5 /hpf (0-5/HPF) Urine Bacteria None seen (None) Ur Culture Indicated? Cult not indicated Vol Urine Centrifuged 10ml (spun) Point of care testing: Urine Dip Bedside Urine Glucose Negative Bedside Urine Bilirubin - Negative Bedside Urine Ketone +++ 80 Urine Specific [place] 1.025 Bedside Urine Occult Blood +++ Bedside Urine pH 6.0 Bedside Urine Protein - Negative Bedside Urine Urobilinogen - Negative Bedside Urine Nitrite - Negative Bedside Urine Leukocytes - Negative Esterase Imaging Data Renal ultrasound: Radiologist's Impression: [address] [address] Ultrasound Report Signed Patient: Inessa Fan MR#: [id number] : 1970 Acct:[id number] Age/Sex: 54 / F Date of Service: 03/13/25 Loc: ED Accession Number: [id number] Procedure: US renal complete Ordering Provider: Molly Sam D.O. PROCEDURE: US RENAL COMPLETE INDICATIONS: R flank pain TECHNIQUE: Real-time scanning was performed of the kidneys and bladder, with image documentation. COMPARISON: None. FINDINGS: Kidneys: Kidneys are normal in size. Right kidney measures 9.4 cm long; left kidney measures 10.1 cm long. Right renal cortical thickness is 1.0 cm; left renal cortical thickness is 1.4 cm. Renal cortical echotexture is normal. Mild right hydronephrosis. No obstructing calculus is seen. No left hydronephrosis. Simple left renal cyst measures up to 2 cm. No suspicious solid mass lesions. Bladder: Pre-void bladder volume is 18 mL. Post-void residual is 0 mL. Pre-void images demonstrate no intraluminal masses or stones. On pre-void images, no ureteral jets are noted with color Doppler interrogation. (Of note, ureteral jets may not be detectable in up to 25% of cases due to insufficient differences in specific gravity between ureteral and bladder urine). Miscellaneous: No free pelvic fluid. IMPRESSION: Mild right hydronephrosis. No definite obstructing calculus is seen. CT KUB could be performed for further evaluation if indicated clinically. Approved by: Bruno Villareal M.D. on 03/13/2025 at 15:26 MDM Narrative Medical decision making narrative: 54-year-old female with history of kidney stones, nontraumatic right flank pain, concern for possible kidney stone. Ultrasound renal ordered at triage. Labs sent. Afebrile, sirs screen negative. DDx suspect recurrence kidney stones, consider also biliary colic, cholecystitis, choledocholithiasis, peptic ulcer, other. Lab data: White blood cell count 5500, hemoglobin 13.0, platelets adequate. Glucose 110. Renal function, electrolytes unremarkable. Serum CO2 18 mild decreased. Urine dip negative. Urine shows some blood, no obvious inflammatory markers or bacteria. Ultrasound renal. Showed mild right hydronephrosis, no definite obstructing calculus seen. See radiology report. We discussed further imaging CT abdomen and pelvis, prior kidney stone symptoms, feels similar, declined CT imaging for now. We discussed a single view abdominal x-ray to see if there might be radiopaque stone in the symptomatic right side, to be able to follow stone in follow up if it should be radiopaque, declined also. Home pack of hydrocodone given. Home pack ondansetron. Discharged home with family. Follow up with Urology as needed. Return precautions discussed. Discharge Plan Departure Patient Disposition: Home Clinical Impression: Flank pain, History of kidney stones, Hydronephrosis of right kidney Instructions: DI for Kidney Stones Activity Restrictions/Additional Instructions: History of prior kidney stones, nontraumatic right-sided flank pain, no fever on triage, urine showed presence of blood but not obviously infected. Ultrasound of the renal system showed dilation of the ureter that drains of the right kidney, hydronephrosis, as can be seen with a passing stone. The stone was not actually visualized which is often the case with ultrasound. We did discuss CT scan imaging, hold for now. We discussed seeming sinlge view x-ray abdomen to see if the position /size of the stone would be visible, also declined for now. Trial of outpatient treatment for now. Continue taking [id number] ibuprofen/ Advil for pain control. You could try tamsulosin to help expel the stone more efficiently, some urologists think this is helpful, prescription sent to your requested pharmacy. Home pack of antinausea medication ondansetron dispensed. Home pack of hydrocodone/ acetaminophen also dispensed, to use if needed for additional pain relief. Consider local urology follow up, contact information for clinic of Dr. Hugo provided. Prescriptions: New tamsulosin 0.4 mg capsule 0.4 mg PO DAILY Qty: 14 0RF tamsulosin 0.4 mg capsule 0.4 mg PO DAILY Qty: 14 0RF No Action ibuprofen 600 MG tablet 600 mg PO Q6HP Qty: 0 CHOLECALCIFEROL (VITAMIN D) 2,000 units PO QDAY Qty: 0 progesterone micronized 100 mg capsule 100 mg PO QPM Qty: 90 0RF estradiol 0.075 mg/24 hr patch weekly 1 patch transdermal QWEEK Qty: 12 3RF dextroamphetamine-amphetamine [Adderall] 20 mg tablet 20 mg PO DAILY Qty: 30 0RF dextroamphetamine-amphetamine [Adderall] 20 mg tablet 20 mg PO DAILY Qty: 30 0RF dextroamphetamine-amphetamine [Adderall] 20 mg tablet 20 mg PO DAILY Qty: 30 0RF temazepam 15 mg capsule 15 mg PO BEDTIME PRN (Reason: sleep initiation and maintenence) Qty: 30 5RF Referrals: Nino Hugo DO [Physician, Urology] David Gray MD [Primary Care Provider, Family Practice] Stand Alone Forms: Patient Portal/API
[2025-03-13] MEDS: ONDANSETRON 4 MG ODT PREPACK 1 BOTTLE MISC (19:47)
== END 2025-03-13 19:57 | disposition home or self-care (01) ==
PROVIDERS: Emergency Medicine; Emergency Provider Emergency Medicine; PCP Family Medicine
DX: N13.39 Other hydronephrosis (principal); Z87.442 Personal history of urinary calculi
CPT/HCPCS: 36415; 76770; 80053; 81003; 81015; 85025; 96374; 96375; 99284; J1885; J2405